=== PATIENT | male | born 1980 | race Two or more races ===

== ENCOUNTER 2016-05-20 21:51 | Emergency (ER) | payer SELFPAY ==
[~2016-05-20] VITALS: Ht 162.6 cm; Wt 59.0 kg
[2016-05-21 02:05] VITALS: BP 116/76
== END 2016-05-21 08:48 | disposition left against medical advice (07) ==
LOC: ER 22:13
DX: J02.9 Acute pharyngitis, unspecified (principal)

== ENCOUNTER 2016-06-09 20:41 | Emergency (ER) | payer SELFPAY ==
[~2016-06-09] VITALS: Ht 167.6 cm; Wt 57.7 kg
[2016-06-10 01:30] VITALS: BP 99/70
[2016-06-10] MEDS ORDERED: cefTRIAXone SOD 1,000 MG VL IM ONE (02:15)
== END 2016-06-10 02:36 | disposition home or self-care (01) ==
LOC: ER 20:47
DX: J40 Bronchitis, not specified as acute or chronic (principal); F17.210 Nicotine dependence, cigarettes, uncomplicated; F12.10 Cannabis abuse, uncomplicated
CPT/HCPCS: 96372; 99283; J0696